=== PATIENT | female | born 1940 | race Caucasian/White ===

== ENCOUNTER 2016-08-18 16:50 | Emergency (ER) | payer MEDICARE, OTHER ==
[~2016-08-18] VITALS: Ht 160 cm; Wt 89.9 kg
[~2016-08-18 16:50] MED LIST: HYDR-2164 PO; LEVO500T86 PO; METO25TA27 PO; POTA10TA18 PO; SIMV40TA82 PO; VALS160T13 PO; [UNRECOGNIZED DRUG - CODE] PO
[2016-08-18 16:52] VITALS: Ht 160 cm; Wt 89.9 kg
--- NOTE | 2016-08-18 17:00 | NUR ---
REPORT TO ANGELIC MATHIS
--- NOTE | 2016-08-18 17:01 | NUR ---
PROVIDER Esther CHOI EXTENSION EDUCATOR IN TO SEE PATIENT.
--- NOTE | 2016-08-18 17:08 | ERPDOC ---
Departure Disposition Decision Date: Aug 18, 2016 Disposition Decision Time: 17:54 Disposition: 01 DISCHARGED HOME, SELF-CARE Impression Impression Impression: Primary Impression: Urinary tract infection Urinary tract infection type: acute cystitis Hematuria presence: without hematuria Qualified Codes: N30.00 - Acute cystitis without hematuria Severity: Moderate Condition: Stable Seen By: Mid-level only Referrals: NICO PAYNE II, MD (Family) Patient Instructions: Urinary Tract Infection in Women (ED) Problems/Meds/Labs Reviewed?: Yes Medications reviewed and manag: Yes Additional Instructions: Take the Keflex as prescribed. Make sure that you are drinking plenty of fluids at home as well. If you are not improving in the next 1-2 days then follow up with your primary care provider for reevaluation. Follow up care ordered?: Yes Mental Status: Alert Scripts Cephalexin (Keflex) 500 Mg Capsule 1 CAP PO TID, #21 CAP 0 Refills Prov: OSVALDO CHOI RN DIABETES EDUCATOR 08/18/16 HPI - Abdominal Pain General Chief Complaint: Abdominal Pain Stated Complaint: LOWER ABDOMINAL PAIN Time Seen by Provider: 17:00 Source: patient History/Exam Limitations: no limitations HPI - Abdominal Pain Initial Comments For the last several days she has been having some trouble with low abdominal pain. It originally started on the right side but now is both sides in the very low abdomen. She denies any fever or chills, or nausea/vomiting. Has had some diarrhea the last few days but none today. She denies any urinary symptoms. Has had pain similar to this a few years ago when she had her gallbladder out and she had diverticulitis as well. Occurred At: home Onset: Gradual Duration: other (Over the last several days) Quality: sharpness Location: RLQ, LLQ Radiation: no radiation 1 - area of pain Activities at Onset: none Associated Symptoms: other (decreased appetite), DENIES: back pain, chest pain , diaphoresis, fatigue, fever/chills, headache, heartburn, nausea/vomiting, rash , shortness of breath, swelling/mass in abdomen, syncope, weakness Hx of Similar Symptoms: No Allergies: Coded Allergies: Sulfa (Sulfonamide Antibiotics) (Verified Allergy, Unknown, 08/18/16) Past History Past Medical History Metabolic: gout, hypercholesterolemia, hypertension Cardiac: CAD Surgical History General: gallbladder Cardiac: cardiac cath Vaccines Hx Influenza Vaccination: Yes (JAN 2012) Hx Pneumococcal Vaccination: Yes (2010) Social History Smoking Status: Never smoker Substance Use Type: does not use Alcohol Intake: none Review of Systems Constitutional Constitutional: DENIES: chills, dizziness, fatigue, fever, weakness Cardiovascular Cardiac: DENIES: chest pain, orthopnea Rhythm/Rate: DENIES: irregular beat, palpitations Pulmonary Respiratory: DENIES: cough, dyspnea, sputum, tachypnea GI Upper Abdomen: DENIES: nausea, pain, vomiting Lower Abdomen: diarrhea, pain, DENIES: constipation General: DENIES: dysuria, frequency, urgency Integumentary Skin: DENIES: rash Neurological General: DENIES: headache, numbness, tingling, weakness Physical Exam General General Nourishment: well nourished, well developed, appears stated age, no acute distress, adult General Body Habitus: well groomed Vitals and Pain First Documented Vital Signs Date Time Temp Pulse Resp B/P Pulse Ox O2 Delivery O2 Flow Rate FiO2 08/18/16 16:52 98.0 56 16 202/85 96 Room Air Weight: Kilograms: 89.900 Height (feet): 5 Height (inches): 3.00 Triage Pain Scale: RN VS reviewed by Provider: Yes Normal Exams: Neck: Full range of motion, without adenopathy, JVD, bruits or thyromegaly Chest/Resp: Clear all matthews, with good airflow, and symmetry bilaterally CV: Regular rate and rhythm, without murmur or gallop, Pulses 2+ all extremities, capillary refill, <2 seconds all ext., no pedal edema noted Abdomen: Bowel sounds positive, non-distended, no hepatosplenomegaly, masses or bruits noted Lymphatic: No lymphadenopathy, or lymphedema noted Integumentary: No rashes, hives, or bruising noted Neurologic: Patient is alert, and oriented Psychiatric: Patient exhibits, appropriate attention, emotion and affect Abdomen Inspection: NOT FOUND: distention Palpation: FOUND: tender (mild TTP in the LLQ and RLQ), NOT FOUND: involuntary guarding, rebound, soft, voluntary guarding Auscultation: FOUND: normoactive Differential Diagnoses Considering: Bowel Obstruction, Constipation, Crohn's, Diverticulitis, Renal Colic, UTI Progress Results/Orders Orders Procedure Category Date Status Time Cbc W/Auto LAB 4/30/17 Complete Diff-Reflex Manual Cmp - Comprehensive LAB 08/18/16 Complete Metabolic Iv Lock (Ed Only) EDM 08/18/16 Transmitted 17:03 Normal Saline (Normal PHA 08/18/16 In Process Saline Iv) 17:15 Morphine Sulfate PHA 08/18/16 Complete (Morphine) 17:15 UA, LAB 08/18/16 Complete Dip&Micro(Complete) & 17:47 Cephalexin Capsule PHA 08/18/16 Complete (Keflex) 18:00 Urine Culture JAZZ 08/18/16 In Process 18:04 Lab Results Laboratory Tests Test 08/18/16 17:14 08/18/16 17:47 White Blood Count 8.2T/MM3 Red Blood Count 4.76M/MM3 Hemoglobin 14.4GM/DL Hematocrit 43.3% Mean Corpuscular Volume 91.0UM3 Mean Corpuscular Hemoglobin 30.3UUG Mean Corpuscular Hemoglobin Concent 33.3GM/DL RDW Standard Deviation 43.9FL Platelet Count 177T/MM3 Mean Platelet Volume 11.6UM3 Immature Granulocyte % (Auto) 0.0% Neutrophils (%) (Auto) 72.8% Lymphocytes (%) (Auto) 19.2% Monocytes (%) (Auto) 6.7% Eosinophils (%) (Auto) 1.1% Basophils (%) (Auto) 0.2% Absolute Immature Granulocyte (auto 0.00T/MM3 Absolute Neutrophils (auto) 6.0T/MM3 Absolute Lymphocytes (auto) 1.6T/MM3 Absolute Monocytes (auto) 0.6T/MM3 Absolute Eosinophils (auto) 0.1T/MM3 Absolute Basophils (auto) 0.0T/MM3 Turbidity < 20 Sodium Level 143MEQ/L Potassium Level 4.2MEQ/L Chloride Level 105MEQ/L Carbon Dioxide Level 25MEQ/L Anion Gap 13MEQ/L Blood Urea Nitrogen 21.0MG/DL Creatinine 0.9MG/DL Glomerular Filtration Rate Calc 61 BUN/Creatinine Ratio 23RATIO Glucose Level 112MG/DL Calculated Osmolality 279MOSM/KG Calcium Level 9.8MG/DL Total Bilirubin 1.60MG/DL Icterus Index < 2 Aspartate Amino Transf (AST/SGOT) 23U/L Alanine Aminotransferase (ALT/SGPT) 40U/L Alkaline Phosphatase 100U/L Total Protein 7.0G/DL Albumin 4.0G/DL Globulin 3.0G/DL Albumin/Globulin Ratio 1.3RATIO Chemistry Specimen Hemolysis < 15 Urine Collection Type Cleancatch-midstream Urine Color Yellow Urine Turbidity Sl cloudy Urine pH 5.0 Urine Specific [place] 1.020 Urine Protein Negative Urine Glucose (UA) Negative Urine Ketones Negative Urine Blood Trace-intact Urine Nitrite Positive Urine Bilirubin Negative Urine Urobilinogen 0.2EU/DL Urine Leukocyte Esterase 1+ Urine RBC 1-3/HPF Urine WBC 20-30/HPF Urine WBC Clumps Few Urine Squamous Epithelial Cells 5-10 Urine Bacteria 3+ Urine Culture Indicated Cult reflexed &setup Medications Current ED Medications Sodium Chloride (Normal Saline IV) 1,000 ml @ 1,000 mls/hr Q1H ONCE IV Last administered on 08/18/16 17:16; Start 08/18/16 at 17:15; Stop 08/18/16 at 18:14 Morphine Sulfate (Morphine) 2 mg O ONCE IV Last administered on 08/18/16 17: 16; Start 08/18/16 at 17:15; Stop 08/18/16 at 17:16; Status DC Cephalexin HCl (Keflex) 500 mg O ONCE PO Last administered on 08/18/16 18:00 ; Start 08/18/16 at 18:00; Stop 08/18/16 at 18:01; Status DC Progress Progress CBC and CMP today are normal. UA does show nitrite +, Bacteria is 3+, LE is 1+, 20-30 WBC, WBC clumps are few. Will have her start on some Keflex today and push fluids at home. Follow up with her PCP if not improving at all. OSVALDO CHOI APRN Aug 18, 2016 17:08
[2016-08-18] MEDS ORDERED: METO25TA6 PO (17:09)
[2016-08-18] MEDS ORDERED: POTA20TA10 PO (17:09)
[2016-08-18] MEDS ORDERED: BENA20TA3 PO (17:10)
[2016-08-18] MEDS ORDERED: MORPHINE SULFATE 2 MG SYRINGE IV ONE (17:15)
[2016-08-18] MEDS ORDERED: NORMAL SALINE 1,000 ML IV ONE (17:15)
[2016-08-18 17:24] LABS: BASOPHILS % (AUTO) 0.2 % (0-2); EOSINOPHILS # (AUTO) 0.1 T/MM3 (0-0.5); EOSINOPHILS % (AUTO) 1.1 % (0-4); HCT - HEMATOCRIT 43.3 % (36-46); HGB - HEMOGLOBIN 14.4 GM/DL (12-16); LYMPHOCYTES # (AUTO) 1.6 T/MM3 (1-4.8); LYMPHOCYTES % (AUTO) 19.2 % (23-45); MEAN CORPUSCULAR HGB 30.3 UUG (26-34); MEAN CORPUSCULAR HGB CONC(MCHC 33.3 GM/DL (31-37); MEAN PLATELET VOLUME 11.6 UM3 (9.4-12.4); MONOCYTES # (AUTO) 0.6 T/MM3 (0-0.8); MONOCYTES % (AUTO) 6.7 % (0-9.0); NEUTROPHILS % (AUTO) 72.8 % (33-66); RED BLOOD COUNT 4.76 M/MM3 (4.00-5.20); WBC - WHITE BLOOD COUNT 8.2 T/MM3 (4.5-11.0)
[2016-08-18 17:28] LABS: ALBUMIN/GLOBULIN RATIO 1.3 RATIO (1.1-2.2); ALKALINE PHOSPHATASE 100 U/L (38-126); ALT (SGPT) 40 U/L (9-52); ANION GAP 13 MEQ/L (5-15); AST (SGOT) 23 U/L (14-36); BUN/CREATININE RATIO 23 RATIO (6-26); CALCIUM 9.8 MG/DL (8.4-10.2); CHLORIDE 105 MEQ/L (98-107); CO2 - CARBON DIOXIDE 25 MEQ/L (22-30); CREATININE 0.9 MG/DL (0.7-1.2); GLOMERULAR FILTRATION RATE 61; GLUCOSE 112 MG/DL (65-110); POTASSIUM 4.2 MEQ/L (3.6-5); SODIUM 143 MEQ/L (134-144)
[2016-08-18 17:52] LABS: BLOOD, URINE TRACE-INTACT (NEGATIVE); COLOR,URINE YELLOW (YELLOW); LEUKOCYTE ESTERASE ,URINE 1+ (NEGATIVE); NITRITE,URINE POSITIVE (NEGATIVE); UROBILINOGEN,URINE 0.2 EU/DL (NORMAL)
[2016-08-18] MEDS ORDERED: CEPH-583 PO (17:56)
[2016-08-18] MEDS ORDERED: CEPHALEXIN 500 MG CAPSULE PO ONE (18:00)
[2016-08-18 18:03] LABS: WBC,URINE 20-30 /HPF (0-5)
[2016-08-18 18:04] LABS: BACTERIA,URINE 3+ (NEGATIVE); WBC CLUMPS,URINE FEW
[2016-08-18 18:09] VITALS: BP 154/66; PULSE 49; RESP 18; TEMP 98; O2SAT 96
== END 2016-08-18 18:09 | disposition home or self-care (01) ==
LOC: ED 16:50
DX: N30.00 Acute cystitis without hematuria (principal)
CPT/HCPCS: 80053; 81001; 85025; 87086; 96361; 96374; 99284; A9270; J7030; 87088; 87186